=== PATIENT | male | born 1975 | race Caucasian/White ===

== ENCOUNTER 2018-02-18 06:19 | Emergency (ER) | payer OTHER ==
[~2018-02-18] VITALS: Ht 162.6 cm; Wt 90.7 kg
[2018-02-18 06:21] VITALS: BP 172/123
--- NOTE | 2018-02-18 06:21 | NUR ---
PT PRESENTS TO ED WITH WORST COHEN OF HIS LIFE. STATES WAKING UP FEELING FINE, FELT PAIN IN NECK AND RUBBED WHEN HIS COHEN BEGAN. PT STATES 10/10 COHEN PAIN. A&OX4. PT IS HYPERTENSIVE UPON ASSESSMENT. NEURO CHECK INTACT. ER MD AWARE AND AT BEDSIDE EVALUATING. CONTINUE TO MONITOR.
--- NOTE | 2018-02-18 06:21 | NUR ---
PT AMBULATED TO BED 9. ACCOMPANIED BY .
[2018-02-18] MEDS ORDERED: diphenhydrAMINE 50 MG/ML VIAL IM ONE (06:30)
[2018-02-18] MEDS ORDERED: PROCHLORPERAZINE 10 MG/2 ML VIAL IM ONE (06:30)
--- NOTE | 2018-02-18 07:15 | NUR ---
PT.RESTING IN BED, RR EVEN AND UNLABORED. FAMILY MEMBER AT BEDSIDE. WILL CONTINUE TO MONITOR.
--- NOTE | 2018-02-18 07:25 | NUR ---
DR. PAINTING NOTIFIED OF B/P : 168/121. WILL CONTINUE TO MONITOR..
[2018-02-18] MEDS ORDERED: LIDOCAINE 1% 500 MG/50 ML VIAL INJ SCH (07:30)
--- NOTE | 2018-02-18 07:40 | NUR ---
DR. PAINTING AT BEDSIDE AT THIS TIME. WILL CONTINUE TO MONITOR.
[2018-02-18] MEDS ORDERED: MORPHINE SULFATE 4 MG/ML SYR IM ONE (07:45)
--- NOTE | 2018-02-18 07:53 | NUR ---
PT UNABLE TO PROVIDE URINE AT THIS TIME. ER MD PAINTING NOTIFIED. PROVIDED WITH A CUP OF WATER
--- NOTE | 2018-02-18 08:49 | NUR ---
PT. RESTING COMFORTABLY IN BED, RR EVEN AND UNLABORED. VSS. AT BEDSIDE. WILL CONTINUE TO MONITOR.
[2018-02-18 09:12] LABS: BARBITURATE, URINE NEG. ng/ml (NEG <=200); BENZODIAZEPINE, URINE NEG. ng/mL (NEG <=200); CANNABINOID, URINE POS. ng/mL (NEG <=50); COCAINE, URINE NEG. ng/mL (NEG <=300); OPIATE, URINE NEG. ng/mL (NEG <=2000); PHENCYCLIDINE SCREEN,URINE NEG. ng/mL (NEG <=25)
[2018-02-18] MEDS ORDERED: NACL 0.9% 1,000 ML IV ONE (09:20)
[2018-02-18 09:41] LABS: BASOPHILS % (AUTO) 0.2 % (0.0-2.0); EOSINOPHILS % (AUTO) 0.2 % (0.0-4.0); HEMATOCRIT 47.8 % (36-52); HEMOGLOBIN 16.1 g/dL (12.0-18.0); LYMPHOCYTES # (AUTO) 1.4 K/uL (2.0-11.5); MEAN CORPUSCULAR HEMOGLOBIN 31 pg (27-31); MEAN CORPUSCULAR HGB CONC 34 g/dL (33-37); MEAN CORPUSCULAR VOLUME 91.3 fL (80-94); MONOCYTES # (AUTO) 0.4 K/uL (0.8-1.0); MONOCYTES % (AUTO) 5.5 % (1.7-9.3); NEUTROPHILS # (AUTO) 5.7 K/uL (1.8-7.7); NEUTROPHILS % (AUTO) 75.1 % (42.2-75.2); PLATELET COUNT (AUTO) 213 K/uL (140-450); RED BLOOD CELL COUNT(AUTO) 5.24 MIL/uL (4.20-6.10); RED CELL DISTRIBUTION WIDTH 12.9 % (11.6-13.7); WHITE BLOOD COUNT (AUTO) 7.6 K/uL (4.8-10.8)
--- NOTE | 2018-02-18 09:42 | NUR ---
PT. RESTING COMFORTABLY IN BED , HOB ELEVATED . PROVIDED BLANKET. VSS. WILL CONTINUE TO MONITOR. FAMILY MEMBER AT BEDSIDE
[2018-02-18] MEDS ORDERED: ONDANSETRON 4 MG/2 ML VIAL IVP ONE (09:45)
[2018-02-18] MEDS ORDERED: MORPHINE SULFATE 2 MG/ML SYR IVP ONE (09:45)
[2018-02-18 09:49] LABS: CREATININE 0.9 mg/dL (0.7-1.3)
--- NOTE | 2018-02-18 10:29 | NUR ---
PT. BACK FROM CT, RR EVEN AND UNLABORED. VSS. WILL CONTINUE TO MONITOR.
--- NOTE | 2018-02-18 11:16 | NUR ---
PT. AMBULATED TO RR , STEADY GAIT, RR EVEN AND UNLABORED . WILL CONTINUE TO MONITOR.
[2018-02-18 11:57] VITALS: BP 173/90
--- NOTE | 2018-02-18 11:57 | NUR ---
Patient discharged with v/s stable. Written and verbal after care instructions given and explained. Patient alert, oriented and verbalized understanding of instructions. Ambulatory with steady gait. All questions addressed prior to discharge. ID band removed. Patient advised to follow up with PMD. Rx of NAPROSYN, NORCO 5/325 , HYDROCHLORITHIAZIDE given. Patient educated on indication of medication including possible reaction and side effects. Opportunity to ask questions provided and answered.
== END 2018-02-18 11:57 | disposition home or self-care (01) ==
LOC: MED 06:19
DX: R51 Headache (principal); I10 Essential (primary) hypertension; R11.0 Nausea
CPT/HCPCS: 20552; 36415; 70450; 70460; 80048; 80305; 85025; 96372; 96374; 96375; 99291; J0780; J1200; J2001; J2270; J2405; Q9967